=== PATIENT | male | born 1965 | race African-American/Black ===

== ENCOUNTER 2024-09-27 07:47 | Day surgery (SDC) | payer MEDICARE, MEDICAID, SELFPAY ==
[2024-09-21 10:53] VITALS: BMI 28.6
--- NOTE | 2024-09-24 12:07 | HO.ANESPROP2 ---
Documented by User: Leigh Mcclelland NP 09/24/24 12:08 HPI - Anesthesia Eval Consult details Narrative: 59yo M for Left Cataract Extraction IOL Insertion Medical clearance pending BP recheck No previous cataract on record [facility] Past Medical History Medical History (Updated 09/22/24 @ 15:23 by Mey Mcneill, RN) Diabetes History of elevated PSA Cataract of left eye Insomnia Anxiety HTN (hypertension) Surgical History Surgical History (Updated 09/22/24 @ 15:23 by Mey Mcneill, RN) Hx of shoulder surgery Hx of colonoscopy (~2017) Social History Social History (Updated 09/22/24 @ 15:24 by Mey Mcneill RN) Are you a primary youth care worker to a significant other at home: No Do you presently have visiting nurse or other home services: No Patient Tobacco Use Status: Former Tobacco user Use of substances other than those prescribed or required for medical reasons: No Substance Use Type: Crack/Cocaine and Former Substance User Substance Use Frequency Other:: 2018 per PCP note Have you been hit, kicked, punched, or otherwise hurt by someone within the past year? If so, by whom?: No Are you DNR?: No Advance Directives: No Advance Directives Information Provided: Yes Advance Directives on File: No Poor oral hygiene: No Meds Allergies Allergy/AdvReac Type Severity Reaction Status Date / Time No Known Allergies Allergy Verified 09/21/24 09:38 Home Medications ?Medication ?Instructions ?Recorded ?Confirmed ?Last Taken ?Type amlodipine 10 mg tablet 10 mg PO DAILY 09/20/24 09/20/24 09/27/24 History losartan 50 mg tablet 50 mg PO DAILY 09/20/24 09/20/24 Unknown History Exam Height,Weight and Vital Signs: Height 5 ft 8 in Weight 85.275 kg Assessment and Plan Assessment Anesthesia Assessment: Chart Reviewed Documented by User: Duke Carlin MD 09/27/24 09:16 [facility] Past Medical History Medical History (Updated 09/22/24 @ 15:23 by Mey Mcneill RN) Diabetes History of elevated PSA Cataract of left eye Insomnia Anxiety HTN (hypertension) Family History Family history of problems with anesthesia: No Surgical History Surgical History (Updated 09/22/24 @ 15:23 by Mey Mcneill RN) Hx of shoulder surgery Hx of colonoscopy (~2017) History of Problems with Anesthesia: No Social History Social History (Updated 09/22/24 @ 15:24 by Mey Mcneill RN) Are you a primary youth care worker to a significant other at home: No Do you presently have visiting nurse or other home services: No Patient Tobacco Use Status: Former Tobacco user Use of substances other than those prescribed or required for medical reasons: No Substance Use Type: Crack/Cocaine and Former Substance User Substance Use Frequency Other:: 2018 per PCP note Have you been hit, kicked, punched, or otherwise hurt by someone within the past year? If so, by whom?: No Are you DNR?: No Advance Directives: No Advance Directives Information Provided: Yes Advance Directives on File: No Poor oral hygiene: No Meds Allergies Allergy/AdvReac Type Severity Reaction Status Date / Time No Known Allergies Allergy Verified 09/21/24 09:38 Home Medications ?Medication ?Instructions ?Recorded ?Confirmed ?Last Taken ?Type amlodipine 10 mg tablet 10 mg PO DAILY 09/20/24 09/20/24 09/27/24 History losartan 50 mg tablet 50 mg PO DAILY 09/20/24 09/20/24 Unknown History Exam Airway Mallampati Class: III TM Dist: >3cm Neck ROM: Full Assessment and Plan Assessment Anesthesia Assessment: Anesthesia Plan Discussed Final Anesthetic Review Family History of Problems with Anesthesia: No History of Problems with Anesthesia: No NPO: Yes ASA Class: III Final Preanesthetic Review: No Changes in Pt Med Stat, Meds/Allgs Chart Reviewed, Consent Obtained/Reviewed and Anes Risks/Benef Reviewed Patient Risk: Intermediate Procedure Risk: Low Anesthetic Plan Anesthetic Plan: MAC: Disposition: Standard PACU
[2024-09-27 08:23] VITALS: BP 165/92; RESP 18; TEMP 36.4; O2SAT 98
[2024-09-27] MEDS: Tetracaine HCl/PF 0.5% Oph Sol 4 ML DROPS 1 DROP EYE-LEFT (08:29)
[2024-09-27] MEDS: Cyclopentolate 1 % Ophth Sol 2 ML DRPBTL 1 DROP EYE-LEFT ×3 (08:31→08:38)
[2024-09-27] MEDS: Tropicamide 1 % Ophth Sol 3 ML BTL 1 DROP EYE-LEFT ×3 (08:32→08:39)
[2024-09-27] MEDS: Phenylephrine HCL 2.5% Oph SoL 2 ML BOTTLE 1 DROP EYE-LEFT ×3 (08:33→08:40)
[2024-09-27] MEDS: Lactated Ringers 500 ML 50 ML IV (08:34)
[2024-09-27] MEDS: Ketorolac Tromethamine 0.5% Op 5 ML DROPS 1 DROP EYE-LEFT ×3 (08:40→08:43)
--- NOTE | 2024-09-27 09:55 | MHC.SHP ---
Pre-Procedural Eval Section A - 24 Hr Update-Section A only Date of Service: 09/27/24 The patient is an INPATIENT: No Changes since office visit: No Cold of Flu in the past 2 weeks, No New Medical Problems, No Changes in Medication and No Patient answered all questions The patient has been examined within 24 hours of the surgical procedure. The History & Physical has been completed within 30 days and I have reviewed it.: Yes Section B - Complete if H&P > 30 days Chief Complaint: Age-related nuclear cataract, left eye Allergies: Allergies Allergy/AdvReac Type Severity Reaction Status Date / Time No Known Allergies Allergy Verified 09/21/24 09:38 Plan Diagnosis/Plan: Unchanged I have reviewed the history and physical and performed a pertinent physical examination on my patient. No changes have occurred unless specified. Time Spent With Patient Time: Total time managing care of this patient today ____ minutes.
--- NOTE | 2024-09-27 09:56 | HO.PNOPHT ---
Ophthalmology Procedure Procedure Date of Service: 09/27/24 Ophthalmology Viscoelastic: Healon Duet Dual Pack Pro Ophthalmology Lenses: IOL Acrysof MP - [id number] (18.5) Procedure Notes: PREOPERATIVE DIAGNOSIS: Decreased visual acuity left eye secondary to cataract POSTOPERATIVE DIAGNOSIS: Same PROCEDURE: Left cataract extraction with intraocular lens insertion SURGEON: Heber Pierce M.D. ANESTHESIA: Topical/MAC ESTIMATED BLOOD LOSS: None COMPLICATIONS: None After obtaining informed consent, the patient was brought to the operation room suite and placed in the supine position. After adequate sedation per anesthesia, topical drops of Tetracaine were given to the left eye. The eye was then prepped and draped in the usual sterile fashion. The operating room microscope was then positioned over the operative eye and a lid speculum placed. A paracentesis was created. Viscoelastic was then instilled into the anterior chamber. A three plane incision was then created temporally, utilizing a 2.85 mm keratome. Capsulotomy forceps were then utilized to create a circular tear capsulotomy. Hydrodissection and hydrodelineation were carried out until adequate mobilization of the nucleus occurred. Phacoemulsification was then utilized to remove the dense central nucleus followed by removal of the cortical material utilizing the automated aspiration irrigation unit. Viscoat elastic was instilled into the posterior capsular bag followed by placement of a posterior chamber intraocular lens without difficulty. The residual Viscoat elastic was then removed utilizing the automated IA machine. The wound was check and found to be watertight. The patient tolerated the procedure well and the lid speculum was removed. Intracameral injection of Vigamox 0.1 mL followed by a subtenon injection of Kenalog-40 0.2 mL were administered. The patient will be seen in the a.m.
[2024-09-27 10:22] VITALS: BP 137/71; PULSE 70; RESP 12; TEMP 36.3; O2SAT 97
[2024-09-27 10:23] VITALS: BP 137/91; PULSE 72; RESP 14; TEMP 36.3; O2SAT 97
== END 2024-09-27 10:30 | disposition home or self-care (01) ==
PROVIDERS: PCP Internal Medicine; Visit Provider Ophthalmology
PROC: (CPT 66985; principal; 2024-09-27 10:20)
DX: H25.12 Age-related nuclear cataract, left eye (principal); H52.4 Presbyopia; H11.153 Pinguecula, bilateral; I10 Essential (primary) hypertension; E11.9 Type 2 diabetes mellitus without complications; F41.9 Anxiety disorder, unspecified; G47.00 Insomnia, unspecified; Z79.899 Other long term (current) drug therapy; Z88.5 Allergy status to narcotic agent; F14.11 Cocaine abuse, in remission; Z98.890 Other specified postprocedural states; Z87.891 Personal history of nicotine dependence
CPT/HCPCS: 66984; J2250; J3010; J3301; V2630